=== PATIENT | female | born 1945 | race Caucasian/White ===

== ENCOUNTER 2016-11-21 13:19 | Inpatient (IN) | payer OTHER ==
[~2016-11-21] VITALS: Ht 160 cm; Wt 123.0 kg
[~2016-11-21 13:19] MED LIST: ADVIL,NUPRIN,M200 MG PO; ALBUTEROL SULF8.5 GM IH; ASPIR-LOW81 MG PO; CARDIZEM CD,CA240 MG PO; CYMBALTA60 MG PO; Cymbalta PO; DEXILANT60 MG PO; GABAPENTIN300 MG PO; HYDROCODON-ACE1 EAC9 PO; KAPIDEX60 MG PO; NORCO 5/3251 TABLET PO; TAZTIA XT180 MG PO; XARELTO20 MG PO; Zestril,Prinivil PO
[2016-11-21] MEDS ORDERED: GABAPENTIN300 MG PO (13:53)
[2016-11-21] MEDS ORDERED: ACID REDUCER 1150 MG PO (13:54)
[2016-11-21 14:00] VITALS: BP 137/70
[2016-11-21 15:20] VITALS: BP 119/55
[2016-11-21] MEDS ORDERED: CARAFATE1 GM PO (15:38)
[2016-11-21 15:39] LABS: GFR ESTIMATE (CALCULATED) > 59 mL/min/
[2016-11-21] MEDS ORDERED: PROTONIX40 MG PO (15:41)
[2016-11-21 15:45] LABS: HEMATOCRIT 39.1 % (36.0-46.0); MCH 28.4 PG (29.0-34.0); MCV 86.1 FL (83-99); PLATELET COUNT 250 K/uL (156-360); RBC DIS.WIDTH-CV 14.5 % (11.8-14.6); RBC DIS.WIDTH-SD 45.5 % (39-53); RED BLOOD COUNT 4.54 M/uL (3.80-5.20); WHITE BLOOD COUNT 7.7 K/uL (4.1-10.2)
[2016-11-21 16:09] LABS: ANION GAP 7 MEQ/L (2-14); CHLORIDE 101 MEQ/L (99-109); GFR ESTIMATE (CALCULATED) > 59 mL/min/; GLUCOSE 98 mg/dL (70-99); POTASSIUM 3.8 MEQ/L (3.7-5.4); SAMPLE HEMOLYSIS CHECK 0; SAMPLE ICTERIC CHECK 0; SAMPLE LIPEMIA CHECK 0; SODIUM 137 MEQ/L (136-147); UREA NITROGEN (BUN) 14 mg/dL (9-23)
[2016-11-21 21:04] VITALS: BP 130/66
[2016-11-21 23:49] VITALS: BP 113/55
[2016-11-22 03:45] VITALS: BP 106/51
[2016-11-22 06:14] LABS: HEMATOCRIT 37.7 % (36.0-46.0); MCH 27.6 PG (29.0-34.0); MCHC 31.8 G/DL (30.0-36.0); MCV 86.7 FL (83-99); MEAN PLAT.VOLUME 9.7 uM^3 (9.5-12.4); PLATELET COUNT 251 K/uL (156-360); RBC DIS.WIDTH-CV 14.5 % (11.8-14.6); RBC DIS.WIDTH-SD 46.4 % (39-53); RED BLOOD COUNT 4.35 M/uL (3.80-5.20); WHITE BLOOD COUNT 7.3 K/uL (4.1-10.2)
[2016-11-22 06:38] LABS: ANION GAP 6 MEQ/L (2-14); CHLORIDE 104 MEQ/L (99-109); GFR ESTIMATE (CALCULATED) > 59 mL/min/; GLUCOSE 103 mg/dL (70-99); POTASSIUM 4.2 MEQ/L (3.7-5.4); SAMPLE HEMOLYSIS CHECK 0; SAMPLE ICTERIC CHECK 0; SAMPLE LIPEMIA CHECK 0; SODIUM 141 MEQ/L (136-147); UREA NITROGEN (BUN) 12 mg/dL (9-23)
[2016-11-22 07:10] VITALS: BP 128/65
[2016-11-22 11:29] VITALS: BP 164/60
[2016-11-22 15:38] VITALS: BP 128/62
[2016-11-22 19:10] VITALS: BP 116/57
[2016-11-22 23:30] VITALS: BP 137/78
[2016-11-23 04:12] VITALS: BP 135/66
[2016-11-23 07:50] VITALS: BP 126/80
[2016-11-23 12:15] VITALS: BP 123/79
[2016-11-23 16:20] VITALS: BP 138/69
[2016-11-23 23:10] VITALS: BP 139/79
[2016-11-24 07:00] VITALS: BP 143/80
== END 2016-11-24 15:30 | disposition home or self-care (01) | DRG 602 ==
LOC: 2EAST 13:19
PROVIDERS: Surgery
DX: L03.312 Cellulitis of back [any part except buttock and flank] (principal); J18.9 Pneumonia, unspecified organism; Z68.42 Body mass index [BMI] 45.0-49.9, adult; J44.0 Chronic obstructive pulmonary disease with (acute) lower respiratory infection; I48.0 Paroxysmal atrial fibrillation; J20.9 Acute bronchitis, unspecified; M79.7 Fibromyalgia; I10 Essential (primary) hypertension; K21.9 Gastro-esophageal reflux disease without esophagitis; G25.81 Restless legs syndrome; Z87.891 Personal history of nicotine dependence; Z82.5 Family history of asthma and other chronic lower respiratory diseases
CPT/HCPCS: 71020; 80048; 80202; 82565; 85027; 87040; 87070; 87075; 87205; 87254 90; 93005; 94640; 94640 76; 99202; J2930; J3370